=== PATIENT | female | born 1985 | race Caucasian/White ===

== ENCOUNTER → 2016-12-05 | Outpatient (CLI) | payer OTHER ==
[~2016-12-05] MED LIST: AMOXICILLIN500 M2 PO; AMOXICILLIN500 MG PO; AZITHROMYCIN D250 MG PO; BACLOFEN10 MG PO; BENTYL10 MG PO; BUSPAR10 MG PO; CLEOCIN150 MG PO; CLONAZEPAM0.25 MG PO; CYCLOBENZAPRINE10 MG PO; CYMBALTA30 MG PO; DONNATAL1 CA1 PO; DONNATAL1 TAB PO; FLAGYL500 MG PO; FLINTSTONES COM1 CT1 PO; Fioricet 325 MG1 TAB PO; HYDROCODONE BIT1 T11 PO; MACROBID100 M1 PO; MOTRIN800 MG PO; Motrin,Rufen800 MG PO; NKHM; NORCO 5-325 TA1 EACH PO; PERCOCET 325 MG1 TA2 PO; PHENERGAN25 M3 PO; PRENATAL1 TA2 PO; PRILOSEC40 MG PO; PYRIDIUM200 MG PO; SUBOXONE 12 MG1 EACH SL; TORADOL10 MG PO; TRAMADOL HCL50 MG PO; TRAMADOL50 MG PO; ULTRAM50 MG PO; VIBRAMYCIN100 MG PO; VICODIN 5/500 505 MG PO; VICODIN 500 MG-1 TAB PO; ZANAFLEX4 MG PO; ZANAFLEX6 M1 PO; Zofran4 MG PO
[2016-12-05 16:57] LABS: URINE AMPHETAMINES < 1000 (1000ng/ml); URINE BARBITURATES < 200 (200ng/ml); URINE COCAINE < 300 (300ng/ml)
== END | disposition home or self-care (01) ==
LOC: LAB 16:32
PROVIDERS: Internal Medicine
DX: F11.20 Opioid dependence, uncomplicated (principal)

== ENCOUNTER 2017-10-15 19:22 | Emergency (ER) | payer OTHER ==
[~2017-10-15] VITALS: Ht 152.4 cm; Wt 70.3 kg
[2017-10-15 19:42] VITALS: BP 127/50
== END 2017-10-15 20:45 | disposition home or self-care (01) ==
LOC: ED 19:22
DX: M25.562 Pain in left knee (principal); F17.200 Nicotine dependence, unspecified, uncomplicated; Z88.2 Allergy status to sulfonamides; Z88.6 Allergy status to analgesic agent

== ENCOUNTER 2018-02-18 07:13 | Emergency (ER) | payer OTHER ==
[~2018-02-18] VITALS: Ht 162.5 cm; Wt 75.7 kg
[2018-02-18] MEDS ORDERED: SUBOXONE 8 MG-1 EACH SL (07:17)
[2018-02-18 07:53] LABS: BILIRUBIN NEGATIVE (NEGATIVE); BLOOD 1+ (NEGATIVE); CLARITY CLOUDY (CLEAR); COLOR YELLOW (YELLOW); GLUCOSE NEGATIVE (NEGATIVE); KETONE NEGATIVE (NEGATIVE); LEUKO ESTERASE NEGATIVE (NEGATIVE); NITRITE NEGATIVE (NEGATIVE); PH 5.5 (5.0-9.0); SPECIFIC GRAVITY >= 1.030 (1.005-1.030)
[2018-02-18 08:00] LABS: BACTERIA 1+; MUCOUS 2+; RBC 16-20 rbc/hpf (0-2)
[2018-02-18 08:02] LABS: URINE AMPHETAMINES > 1000 (1000ng/ml); URINE BARBITURATES < 200 (200ng/ml); URINE BENZODIAZEPINES < 200 (200ng/ml); URINE CANNABINOIDS (THC) < 50 (50ng/ml); URINE COCAINE < 300 (300ng/ml); URINE METHADONE < 300 (300ng/ml); URINE OPIATES < 300 (300ng/ml); URINE PHENCYCLIDINE < 25 (25ng/ml)
[2018-02-18 11:26] VITALS: BP 111/62
[2018-02-18] MEDS ORDERED: CYCLOBENZAPRINE10 MG PO (12:03)
== END 2018-02-18 12:25 | disposition home or self-care (01) ==
LOC: ED 07:13
PROVIDERS: Emergency Medicine
DX: G89.29 Other chronic pain (principal); M54.5 Low back pain; Z88.2 Allergy status to sulfonamides; Z88.6 Allergy status to analgesic agent; Z79.899 Other long term (current) drug therapy

== ENCOUNTER → 2018-12-12 | Outpatient (CLI) | payer OTHER ==
[~2018-12-12] MED LIST changes: +SUBOXONE 8 MG-1 EACH SL
[2018-12-12 10:50] LABS: URINE AMPHETAMINES < 1000 (1000ng/ml); URINE BARBITURATES < 200 (200ng/ml); URINE BENZODIAZEPINES < 200 (200ng/ml); URINE CANNABINOIDS (THC) < 50 (50ng/ml); URINE COCAINE < 300 (300ng/ml); URINE METHADONE < 300 (300ng/ml); URINE OPIATES < 300 (300ng/ml)
[2018-12-12 10:51] LABS: URINE PHENCYCLIDINE < 25 (25ng/ml)
== END | disposition home or self-care (01) ==
LOC: LAB 10:24
PROVIDERS: Internal Medicine
DX: F11.20 Opioid dependence, uncomplicated (principal)

== ENCOUNTER 2019-05-26 22:46 | Emergency (ER) | payer OTHER ==
[~2019-05-26] VITALS: Ht 165.1 cm; Wt 62.6 kg
[2019-05-26 22:47] VITALS: BP 121/80
== END 2019-05-26 23:22 | disposition home or self-care (01) ==
LOC: ED 22:46
DX: F41.9 Anxiety disorder, unspecified (principal); F32.9 Major depressive disorder, single episode, unspecified; Z79.899 Other long term (current) drug therapy; Z88.2 Allergy status to sulfonamides; Z88.6 Allergy status to analgesic agent

== ENCOUNTER 2019-10-09 20:39 | Emergency (ER) | payer SELFPAY ==
[~2019-10-09 20:39] MED LIST changes: +AMINOPHYLLIN200 MG PO
[2019-10-09 21:04] LABS: BASO # 0.1 10*3/uL (0.0-0.1); EOS # 0.1 10*3/uL (0.0-0.4); HEMATOCRIT 34.8 % (37.0-47.0); HEMOGLOBIN 11.2 g/dl (12.0-16.0); LYMPH # 2.2 10*3/uL (1.3-4.4); MEAN CELL VOLUME 93.3 fl (81.0-99.0); MEAN CORPUSCULAR HGB CONC 32.2 g/dl (33.0-37.0); MEAN PLATELET VOLUME 9.9 fl (9.6-12.3); MONO # 0.6 10*3/uL (0.1-1.0); MONO % 9.1 % (3.0-9.0); NEUT # 3.9 10*3/uL (2.3-7.9); NEUT % 56.5 % (47.0-73.0); PLATELET COUNT AUTOMATED 301 10*3/uL (130-400); RED BLOOD COUNT 3.73 10*6/uL (4.10-5.10); RED CELL DISTRI WIDTH 14.1 % (0-14.5); WHITE BLOOD COUNT 6.9 10*3/uL (4.8-10.8)
[2019-10-09 21:14] LABS: ACT PARTIAL THROMBO TIME 29.3 SECONDS (20.0-32.1)
[2019-10-09 21:20] LABS: ALBUMIN 3.7 gm/dl (3.1-4.5); ALKALINE PHOSPHATASE 96 U/L (45-117); BUN 11 mg/dl (7-24); CHLORIDE 107 mmol/L (98-107); CREATININE 0.81 mg/dL (0.55-1.02); POTASSIUM 4.3 mmol/L (3.5-5.1); SGOT/AST 36 IU/L (3-35); SGPT/ALT 74 U/L (12-78); SODIUM 138 mmol/L (136-145); TOTAL PROTEIN 7.2 gm/dL (6.4-8.2)
[2019-10-09 21:28] LABS: TROPONIN I < 0.015 ng/ml (<0.045)
[2019-10-09 21:34] VITALS: BP 130/66
== END 2019-10-09 21:44 ==
LOC: ED 20:39
PROVIDERS: Emergency Medicine
DX: F41.9 Anxiety disorder, unspecified (principal); R07.89 Other chest pain; F32.9 Major depressive disorder, single episode, unspecified; F17.200 Nicotine dependence, unspecified, uncomplicated; Z88.2 Allergy status to sulfonamides; Z88.8 Allergy status to other drugs, medicaments and biological substances; Z79.899 Other long term (current) drug therapy

== ENCOUNTER 2025-05-13 03:28 | Emergency (ER) | payer SELFPAY ==
[~2025-05-13] VITALS: Ht 152.4 cm; Wt 77.1 kg
[2025-05-13 03:39] VITALS: BP 151/98
[2025-05-13 03:56] LABS: BILIRUBIN Negative (Negative); BLOOD 2+ (Negative); CLARITY Cloudy (Clear); COLOR Yellow (Yellow); KETONE Negative (Negative); LEUKO ESTERASE 2+ (Negative); NITRITE Negative (Negative); PH 6.5 (4.5-8.0); SPECIFIC GRAVITY 1.015 (1.001-1.030); UROBILINOGEN 2.0 E.U./dl (0.0-1.0)
[2025-05-13 04:05] LABS: BACTERIA 2+; EPITHELIAL CELLS 41-50; WBC 21-30 wbc/hpf (0-5)
[2025-05-13 04:06] LABS: RBC 16-20 rbc/hpf (0-2)
[2025-05-13] MEDS ORDERED: Acetaminophen/Hydrocodone ES 7.5/325 tablet PO ONE (04:45)
[2025-05-13] MEDS ORDERED: Ciprofloxacin Hydrochloride 500 MG TAB PO ONE (04:45)
[2025-05-13] MEDS ORDERED: Ondansetron Hydrochloride 4 MG TAB SL ONE (04:50)
[2025-05-13] MEDS ORDERED: CIPRO500 MG PO (04:53)
[2025-05-13] MEDS ORDERED: Ondansetron4 MG PO (04:53)
[2025-05-13] MEDS ORDERED: HYDROCODONE-AC1 EAC1 PO (04:53)
[2025-05-13] MEDS ORDERED: FLOMAX0.4 MG PO (04:53)
== END 2025-05-13 05:00 | disposition home or self-care (01) ==
LOC: ED 03:28
PROVIDERS: Internal Medicine
DX: N13.2 Hydronephrosis with renal and ureteral calculous obstruction (principal); N39.0 Urinary tract infection, site not specified; Z87.442 Personal history of urinary calculi; Z88.2 Allergy status to sulfonamides; Z88.6 Allergy status to analgesic agent; Z79.899 Other long term (current) drug therapy

== ENCOUNTER 2025-06-15 20:43 | Emergency (ER) | payer MEDICAID ==
[~2025-06-15] VITALS: Ht 157.4 cm; Wt 77.1 kg
[~2025-06-15 20:43] MED LIST changes: +CIPRO500 MG PO; +FLOMAX0.4 MG PO; +HYDROCODONE-AC1 EAC1 PO; +Ondansetron4 MG PO
[2025-06-15 20:52] VITALS: BP 160/97
[2025-06-15] MEDS ORDERED: Acetaminophen/Hydrocodone ES 7.5/325 tablet PO ONE (22:20)
[2025-06-15] MEDS ORDERED: Ondansetron Hydrochloride 4 MG TAB SL ONE (22:20)
== END 2025-06-15 22:30 | disposition home or self-care (01) ==
LOC: ED 20:43
DX: S40.011A Contusion of right shoulder, initial encounter (principal); F32.A Depression, unspecified; Z87.442 Personal history of urinary calculi; Z88.1 Allergy status to other antibiotic agents; Z88.2 Allergy status to sulfonamides; Z98.51 Tubal ligation status; V19.9XXA Pedal cyclist (driver) (passenger) injured in unspecified traffic accident, initial encounter; Y93.89 Activity, other specified; Y92.410 Unspecified street and highway as the place of occurrence of the external cause; Y99.8 Other external cause status